=== PATIENT | male | born 1970 | race Hispanic/Latino ===

== ENCOUNTER 2017-05-07 14:48 | Day surgery (SDC) | payer OTHER ==
[2017-05-06 16:07] VITALS: BMI 34.7
[2017-05-07 15:58] LABS: #Basophils 0.1 thou/uL (0.0-0.2); #Eosinphils 0.1 thou/uL (0.0-0.7); #Lymphocytes 2.4 thou/uL (1.20-3.40); #Monocytes 0.7 thou/uL (0.11-0.59); #Neutrophils 9.2 thou/uL (1.40-6.50); %Basophils 0.5 % (0.0-1.0); %Eosinophils 1.1 % (0.0-10.0); %Monocytes 5.6 % (0.0-10.0); Hematocrit 46.7 % (42.0-52.0); Red Blood Cell (RBC) Count 5.06 mill/uL (4.70-6.10); White Blood Cell (WBC) Count 12.5 thou/uL (4.8-10.8)
[2017-05-07] MEDS ORDERED: Ketorolac Tromethamine 30 MG/ML VIAL ONE (16:00)
[2017-05-07] MEDS ORDERED: CEFAZOLIN/Water 2 GM/20 ML SYRINGE ONE (16:01)
[2017-05-07 16:24] LABS: Anion Gap 11 mmol/L (10-20); BUN (Urea Nitrogen) 14 mg/dL (8.9-20.6); Calc. Creatinine Clearance 144 mL/min (70-130); Calcium 9.8 mg/dL (7.8-10.44); Carbon Dioxide 27 mmol/L (22-29); Chloride 104 mmol/L (98-107); Estimated GFR-MDRD 86
[2017-05-07] MEDS ORDERED: Midazolam HCl 2 mg/2 ml Vial ONE ×2 (16:42→19:27)
[2017-05-07] MEDS ORDERED: Fentanyl 250 MCG/5 ML VIAL ONE (19:28)
[2017-05-07] MEDS ORDERED: Bupivacaine 0.25% HCL 30 ML VIAL ONE (19:32)
[2017-05-07] MEDS ORDERED: Lidocaine 2% PF 10 ML AMP (For Epidural Use) ONE (20:03)
[2017-05-07] MEDS ORDERED: Glycopyrrolate 0.2 MG/ML 5 ML SYRINGE ONE (20:03)
[2017-05-07] MEDS ORDERED: Propofol 200 MG/20 ML VIAL ONE (20:03)
[2017-05-07] MEDS ORDERED: Lidocaine 2% w/Epinephrine 1:200K 20 ML VIAL ONE (20:09)
[2017-05-07] MEDS ORDERED: SUGAMMADEX SODIUM 500 MG/5 ML VIAL ONE (21:38)
[2017-05-07] MEDS ORDERED: Ondansetron HCl/PF 4 MG/2 ML Vial ONE (22:28)
--- NOTE | 2017-05-08 14:19 | OP ---
DATE OF PROCEDURE: 05/07/2017 PREOPERATIVE DIAGNOSIS: Right inguinal hernia. POSTOPERATIVE DIAGNOSIS: Right inguinal hernia, direct. OPERATION PERFORMED: Robotic-assisted right inguinal hernia repair with mesh using lightweight larg e 3DMax mesh. SURGEON: Holger De La Cruz MD ANESTHESIA: General endotracheal. INDICATIONS: The patient is a 47-year-old, male. He presents with obvious right inguinal hernia. He is taken to the operating room at this time for repair. DESCRIPTION OF OPERATION: Informed consent was obtained. The patient was taken to the operating ro om where general endotracheal anesthesia was obtained with the patient in supine position. Abdomen and groin were prepped with ChloraPrep and draped in sterile fashion. Local anesthetic was infiltra martín using 0.25% Marcaine with epinephrine and supraumbilical 12 mm incision was created through whic h a Veress needle was passed into the peritoneal cavity. A pneumoperitoneum was established using c arbon dioxide up to a pressure of 15 mmHg. A 12 mm trocar port was passed through this same incisio n. Laparoscopic camera was passed through this port. Under direct vision, 2 additional 8 mm roboti c ports were placed on either side of the midline. Attention was turned to the groin. The patient was noted to have a large direct inguinal hernia. It was positioned in appropriate Trendelenburg po sition. The robot was then docked to the ports and camera, and operation was continued from the richelle otic console. The peritoneum was incised transversely a few centimeters superior to the hernia defect. The preper itoneal dissection was then carried inferiorly identifying the pubic tubercle and Chico's ligament medially, the hernia defect, all cord structures as well as the vas deferens. I continued the disse ction laterally to allow adequate space for mesh placement. The hernia sac was fully reduced as was the hernia contents, which was largely preperitoneal fat. The peritoneum was widely dissected off the underlying cord structures as well. The lightweight large 3DMax mesh patch was obtained and pas sed into the preperitoneal space. It was secured in place with 4 interrupted sutures of 2-0 Vicryl, which were placed to the pubic tubercle, the anterior abdominal wall medial and lateral to the epig astric vessels, and finally to the far lateral aspect of the mesh patch. The peritoneum was closed with a running suture of 3-0 Stratafix. The fascial defect at the 12 mm port site was closed with 0 Vicryl suture using a GraNee needle. Al l ports and instruments were removed under direct vision. Pneumoperitoneum was carefully evacuated. A 0.25% Marcaine with epinephrine was infiltrated in each port site. Skin edges were approximated with 4-0 Monocryl subcuticular suture. Dermabond was placed externally. There were no complicatio ns. The patient tolerated the procedure well and was taken to recovery room in stable condition.
== END 2017-05-07 22:44 | disposition home or self-care (01) ==
LOC: SDC 14:48
PROVIDERS: ATTEND Specialist
PROC: 8E0W4CZ Robotic Assisted Procedure of Trunk Region, Percutaneous Endoscopic Approach (ICD-10-PCS; principal; 2017-05-07)
PROC: 0YU54JZ Supplement Right Inguinal Region with Synthetic Substitute, Percutaneous Endoscopic Approach (ICD-10-PCS; principal; 2017-05-07)
DX: K40.90 Unilateral inguinal hernia, without obstruction or gangrene, not specified as recurrent (principal); Z79.899 Other long term (current) drug therapy
CPT/HCPCS: 80048; 85025; 96374; C1781; J0131; J1885; J2001; J2250; J2405; J2704; J3010; S0020